=== PATIENT | female | born 1955 | race Caucasian/White ===

== ENCOUNTER 2018-07-20 15:58 | Outpatient (CLI) | payer BC | END 2018-07-20 15:59 | disposition home or self-care (01) | LOC: BICMAMMO 15:58 | PROVIDERS: ATTEND Obstetrics & Gynecology | DX: Z12.31 Encounter for screening mammogram for malignant neoplasm of breast (principal); Z80.3 Family history of malignant neoplasm of breast | CPT/HCPCS: 77063; 77067 ==

== ENCOUNTER 2020-10-27 08:39 | Outpatient (CLI) | payer MEDICARE ==
--- NOTE | 2020-10-27 09:32 | MMO ---
Right Breast MAMMO Unilat Diag [facility] RT+MASON. CLINICAL HISTORY: Patient is 65 years old and is seen for diagnostic exam. The patient has no personal history of cancer. VIEWS: The views performed were: right craniocaudal spot compression with tomosynthesis; right mediolateral oblique spot compression with tomosynthesis; and right mediolateral with tomosynthesis. FILMS COMPARED: The present examination has been compared to prior imaging studies performed at [facility] on 10/08/2020, and at [facility] on 03/31/2017, 07/20/2018 and 10/27/2020. This study has been interpreted with the assistance of computer-aided detection. MAMMOGRAM FINDINGS: There are scattered fibroglandular densities. There is a round mass measuring 5 millimeters with circumscribed margins seen in the posterior sub-areolar region of the right breast. Cyst on ultrasound There are no suspicious masses, suspicious calcifications, or new areas of architectural distortion. IMPRESSION: THERE IS NO MAMMOGRAPHIC EVIDENCE OF MALIGNANCY. A ROUTINE FOLLOW-UP MAMMOGRAM IN 1 YEAR IS RECOMMENDED. THE RESULTS OF THIS EXAM WERE SENT TO THE PATIENT. ACR BI-RADS Category 2 - Benign finding MAMMOGRAPHY NOTE: 1. A negative mammogram report should not delay a biopsy if a dominant of clinically suspicious mass is present. 2. Approximately 10% to 15% of breast cancers are not detected by mammography. 3. Adenosis and dense breasts may obscure an underlying neoplasm. Reported by: MARIAM TAM MD Electonically Signed: [id number]
--- NOTE | 2020-10-27 10:01 | ULT ---
RIGHT BREAST ULTRASOUND: Date: 10/27/2020 HISTORY: Patient returns for additional imaging to evaluate a nodular density in the retroareolar aspect of th e right breast. FINDINGS: In the retroareolar region of the right breast, there is a 0.3 x 0.4 x 0.5 cm diameter circumscribed simple cyst. This corresponds to the mammographic finding. IMPRESSION: BI-RADS Category 2 - Benign findings. Continue annual follow-up screening mammograms. POS: OFF
== END 2020-10-27 08:40 | disposition home or self-care (01) ==
LOC: BICMAMMO 08:39
PROVIDERS: ATTEND Student in an Organized Health Care Education/Training Program
DX: R92.2 Inconclusive mammogram (principal)
CPT/HCPCS: 76642; 77065; G0279

== ENCOUNTER 2023-06-02 15:01 | Outpatient (CLI) | payer MEDICARE | END 2023-06-02 15:02 | disposition home or self-care (01) | LOC: BICMAMMO 15:01 | PROVIDERS: ATTEND Family Medicine | DX: Z13.820 Encounter for screening for osteoporosis (principal); M85.89 Other specified disorders of bone density and structure, multiple sites | CPT/HCPCS: 77080 ==

== ENCOUNTER 2025-06-04 08:20 | Outpatient (CLI) | payer MEDICARE | END 2025-06-04 08:21 | disposition home or self-care (01) | LOC: BICMAMMO 08:20 | PROVIDERS: ATTEND Family Medicine | DX: M85.852 Other specified disorders of bone density and structure, left thigh (principal); M85.851 Other specified disorders of bone density and structure, right thigh; Z78.0 Asymptomatic menopausal state | CPT/HCPCS: 77080 ==